=== PATIENT | female | born 1960 | race Two or more races ===

== ENCOUNTER 2025-10-24 07:21 | Day surgery (SDC) | payer OTHER ==
[2025-10-16 13:26] VITALS: BP 120/60
[~2025-10-24 07:21] MED LIST: COZAAR50 MG; MYSOLINE250 MG; SYNTHROID137 MCG; TOPROL XL25 M1
[2025-10-24] MEDS ORDERED: DEXAMETHASONE SODIUM PHOSPHATE 4 MG/ML VIAL ONE (11:37)
== END 2025-10-24 17:00 | disposition home or self-care (01) ==
LOC: CIR.AMB 07:21
PROVIDERS: ATTEND Surgery
DX: C73 Malignant neoplasm of thyroid gland (principal)